=== PATIENT | female | born 1935 | race Caucasian/White ===

== ENCOUNTER → 2016-07-19 | Outpatient (CLI) | payer MEDICARE, OTHER ==
[~2016-07-19] MED LIST: ANAS1TAB PO; ASPI-781 PO; ATEN-51 PO; ATOR20TA38 PO; BEN25 PO; BISA10SU75 PR; CPM MC; DILT360C38 PO; DOCU-144 PO; LOSA1TAB20 PO; NA P133E3 PR; OXYC5CAP17 PO; RANI150T9 PO; TRAM50TA2 PO; WALK1EAC23 MC
--- NOTE | 2016-07-19 14:17 | RADRPT ---
PROCEDURE: XR Pelvis and Hips. CLINICAL INDICATION: Pelvic pain. Bilateral hip pain. TECHNIQUE: Five views. Frontal pelvis. Frontal and lateral right hip. Frontal and lateral left hip. COMPARISON: No prior studies are available for comparison. FINDINGS: There is a right hip total arthroplasty which appears satisfactory. There is no fracture, dislocati on, or loosening. The left hip demonstrates mild to moderate degenerative change with joint space narrowing and osteop hytes. There is no fracture or dislocation. The articular surfaces are otherwise intact. There is no lytic or blastic lesion. The sacroiliac joints are unremarkable. 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 IMPRESSION: 1. Satisfactory postoperative appearance of the right hip total arthroplasty. 2. Mild to moderate degenerative changes of the left hip. 3. Degenerative changes of the lower lumbar spine. RPTAT: QQ .Dov Bueno MD, MD Date Time Electronically viewed and signed by .Dov Bueno MD, on 07/19/2016 14:17 .R/
--- NOTE | 2016-07-19 14:18 | RADRPT ---
PROCEDURE: Right knee radiographs. CLINICAL INDICATION: Right knee pain. Postop. TECHNIQUE: Three views. Weight bearing. Frontal, lateral, and patellar view. COMPARISON: 12/18/2015. FINDINGS: There is no fracture or dislocation. The soft tissues are normal. 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 There is no lytic or blastic lesion. There is no joint effusion. IMPRESSION: 1. Satisfactory postoperative appearance of the right knee. RPTAT: QQ .Dov Bueno MD, Date Time Electronically viewed and signed by .Dov Bueno MD, on 07/19/2016 14:18 .R/
== END | disposition home or self-care (01) ==
LOC: HKI 10:21
PROVIDERS: ATTEND Orthopaedic Surgery
DX: M25.551 Pain in right hip (principal); Z96.641 Presence of right artificial hip joint; M25.561 Pain in right knee
CPT/HCPCS: 73523; 73562; G0463